=== PATIENT | male | born 1985 | race Caucasian/White ===

== ENCOUNTER 2016-08-30 05:04 | Emergency (ER) | payer OTHER ==
[~2016-08-30] VITALS: Ht 165.1 cm; Wt 86.2 kg
[2016-08-30 05:06] VITALS: BP 142/84
--- NOTE | 2016-08-30 05:06 | NUR ---
BIBA BLS TO ER BED 4
--- NOTE | 2016-08-30 05:15 | NUR ---
30/M BIBA C/O CHEST PAIN x 1 HOUR. PT STATES HE IS HAVING WITHDRAWAL SYMPTOMS, STATES LAST USE OF HEROIN 3 DAYS AGO. DENIES N/V/D; SKIN IS PINK/WARM/DRY; AAOX4 WITH EVEN AND STEADY GAIT; LUNGS CLEAR BL; HR EVEN AND REGULAR; PT DENIES ANY FEVER, SOB, OR COUGH AT THIS TIME; PATIENT STATES PAIN OF 4/10 AT THIS TIME; VSS; PATIENT POSITIONED FOR COMFORT; HOB ELEVATED; BEDRAILS UP X2; BED DOWN. ER MD MADE AWARE OF PT STATUS.
--- NOTE | 2016-08-30 05:21 | NUR ---
xray at bedside
--- NOTE | 2016-08-30 05:24 | NUR ---
pt given copy of rehab list. pt given cup to give urine sample and filled it with water.
--- NOTE | 2016-08-30 05:30 | NUR ---
Patient discharged with v/s stable. Written and verbal after care instructions given and explained. Patient alert, oriented and verbalized understanding of instructions. Ambulatory with steady gait. All questions addressed prior to discharge. ID band removed. Patient advised to follow up with PMD. Rx of bentyl given. Patient educated on indication of medication including possible reaction and side effects. Opportunity to ask questions provided and answered.
[2016-08-30 05:31] VITALS: BP 135/81
--- NOTE | 2016-08-30 05:32 | NUR ---
pt escorted to lobby, will call for ride home.
== END 2016-08-30 05:31 | disposition home or self-care (01) ==
LOC: MED 05:05
DX: R07.89 Other chest pain (principal); F11.10 Opioid abuse, uncomplicated

== ENCOUNTER 2020-04-02 16:32 | Emergency (ER) | payer OTHER ==
[~2020-04-02] VITALS: Ht 168.9 cm; Wt 99.3 kg
[~2020-04-02 16:32] MED LIST: AMOX-999 PO
[2020-04-02 16:39] VITALS: BP 144/78
--- NOTE | 2020-04-02 17:07 | NUR ---
PATIENT PRESENTS TO ED C/O FEET BURING PAIN & NUMBNESS, LEFT THIGH, BACK OF RIGHT THIGH PAIN X AFTER DISCHARGING FROM [facility] 03/23/20 FOR DEPRESSION, ASPIRATE PNEUMONIA, 5150, HEROIN OVERDOSE. DENIES SI AT THIS TIME. DENIES TRAUMA OR INJURY . CMS+ BILAT LOWER EXTREMITIES . DENIES N/V/D; SKIN IS PINK/WARM/DRY; AAOX4 WITH EVEN AND STEADY GAIT; LUNGS CLEAR BL; HR EVEN AND REGULAR; PT DENIES ANY FEVER, CP, SOB, OR COUGH AT THIS TIME; PATIENT STATES PAIN OF 0/10 AT THIS TIME; VSS; PATIENT POSITIONED FOR COMFORT; HOB ELEVATED; BEDRAILS UP X2; BED DOWN. ER MD MADE AWARE OF PT STATUS.
--- NOTE | 2020-04-02 17:31 | NUR ---
ULTRASOUND AT BEDSIDE
[2020-04-02 18:27] VITALS: BP 135/72
--- NOTE | 2020-04-02 18:28 | NUR ---
Patient discharged with v/s stable. Written and verbal after care instructions given and explained. Patient verbalized understanding. Ambulatory with steady gait. All questions addressed prior to discharge. Advised to follow up with PMD.
== END 2020-04-02 18:28 | disposition home or self-care (01) ==
LOC: MED 16:32 → MERGE 16:32 → MED 18:28
DX: R20.2 Paresthesia of skin (principal); M79.10 Myalgia, unspecified site; Z79.899 Other long term (current) drug therapy
CPT/HCPCS: 93970; 99284; Q0092

== ENCOUNTER 2021-12-02 19:24 | Emergency (ER) | payer OTHER ==
[~2021-12-02] VITALS: Ht 167.6 cm; Wt 90.7 kg
--- NOTE | 2021-12-02 19:26 | NUR ---
SAROJ ACCOMPANIED BY RONA CUTLER. TAKEN TO CHAIR C
[2021-12-02 19:27] VITALS: BP 159/109
--- NOTE | 2021-12-02 19:48 | NUR ---
PT EVALUATED BY DR. DIAZ
[2021-12-02] MEDS ORDERED: LORazepam 1 MG TAB PO ONE (19:50)
--- NOTE | 2021-12-02 20:00 | NUR ---
PT TAKEN TO XR VIA W/C
[2021-12-02] MEDS ORDERED: LIB25 PO ×2 (20:26→20:29)
--- NOTE | 2021-12-02 21:11 | NUR ---
LAB DRAWING BLOOD AT THIS TIME.
[2021-12-02 21:22] LABS: BASOPHILS % (AUTO) 0.4 % (0.0-2.0); EOSINOPHILS # (AUTO) 0.1 K/uL (0-0.4); EOSINOPHILS % (AUTO) 0.8 % (0.0-4.0); HEMATOCRIT 50.8 % (36-52); HEMOGLOBIN 17.6 g/dL (12.0-18.0); LYMPHOCYTES # (AUTO) 0.9 K/uL (2.0-11.5); LYMPHOCYTES % (AUTO) 10.1 % (20.5-51.1); MEAN CORPUSCULAR HEMOGLOBIN 31 pg (27-31); MEAN CORPUSCULAR HGB CONC 35 g/dL (33-37); MEAN CORPUSCULAR VOLUME 89.3 fL (80-94); MONOCYTES # (AUTO) 0.4 K/uL (0.8-1.0); MONOCYTES % (AUTO) 4.8 % (1.7-9.3); NEUTROPHILS # (AUTO) 7.6 K/uL (1.8-7.7); NEUTROPHILS % (AUTO) 83.9 % (42.2-75.2); PLATELET COUNT (AUTO) 224 K/uL (140-450); RED BLOOD CELL COUNT(AUTO) 5.69 MIL/uL (4.20-6.10); RED CELL DISTRIBUTION WIDTH 15.5 % (11.6-13.7)
[2021-12-02] MEDS ORDERED: chlordiazePOXIDE 25 MG CAP PO ONE (21:30)
[2021-12-02 21:39] LABS: ANION GAP 17.8 (8-16); CARBON DIOXIDE 22.9 mmol/L (21-32); CHLORIDE 101 mmol/L (98-107); CREATININE 1.1 mg/dL (0.6-1.3); GFR ARICAN-AMERICAN 98 mL/min (>90); GLUCOSE 107 mg/dL (74-106); POTASSIUM 4.7 mmol/L (3.5-5.1); SODIUM SERUM 137 mmol/L (136-145); UREA NITROGEN, BLOOD 10 mg/dL (7-18)
[2021-12-02 21:48] LABS: ALBUMIN 4.4 g/dL (3.4-5.0); ASPARTATE AMINOTRANSFERASE 19 U/L (15-37); TOTAL BILIRUBIN 0.6 mg/dL (0.0-1.0)
--- NOTE | 2021-12-02 22:02 | NUR ---
C/O 02/[address] PAIN. RE[address] PAIN MED[address] DIAZ NOTIFIED.
[2021-12-02] MEDS ORDERED: ASPIRIN 325 MG TAB PO ONE (22:05)
[2021-12-02] MEDS ORDERED: KETOROLAC 30 MG/ML VIAL IM ONE (22:05)
--- NOTE | 2021-12-02 22:05 | NUR ---
PT MOVED TO BED #10
--- NOTE | 2021-12-02 22:10 | NUR ---
COVID-19 swab collected and sent to lab.
--- NOTE | 2021-12-02 23:11 | NUR ---
Blood for labwork drawn from left arm per slate roofer. Patient tolerated well.
--- NOTE | 2021-12-02 23:42 | NUR ---
Provided food and drink as request.
[2021-12-03 00:16] VITALS: BP 126/88
--- NOTE | 2021-12-03 00:16 | NUR ---
Patient D/C to custody with [place] [employer].
== END 2021-12-03 00:16 ==
LOC: MED 19:24
DX: F10.139 Alcohol abuse with withdrawal, unspecified (principal); Z20.822 Contact with and (suspected) exposure to COVID-19; Y90.9 Presence of alcohol in blood, level not specified; R19.7 Diarrhea, unspecified; R07.9 Chest pain, unspecified; M54.50 Low back pain, unspecified
CPT/HCPCS: 36415; 71045; 80053; 84484; 85025; 87426; 93005; 96372; 99285; J1885

== ENCOUNTER 2022-03-21 00:45 | Emergency (ER) | payer OTHER ==
[~2022-03-21] VITALS: Ht 167.6 cm; Wt 81.6 kg
[~2022-03-21 00:45] MED LIST changes: +LIB25 PO
[2022-03-21 00:51] VITALS: BP 121/83
--- NOTE | 2022-03-21 00:52 | NUR ---
PT BIBA ALS ER BED 9
--- NOTE | 2022-03-21 01:00 | NUR ---
biba from parking lot found aloc, pinpoint pupils. medicas gave 4mg of narcan. pt is awake and alert. states he took beer, alcohol and vodka. denies hx, rx and allergies
--- NOTE | 2022-03-21 01:25 | NUR ---
DR ZAMORANO AT BEDSIDE FOR EXAM
--- NOTE | 2022-03-21 01:29 | NUR ---
AMBULATED TO BR
[2022-03-21] MEDS ORDERED: LORazepam 1 MG TAB PO ONE (02:55)
--- NOTE | 2022-03-21 03:00 | NUR ---
RESTING WIYH EYES CLOSED
[2022-03-21] MEDS ORDERED: ONDANSETRON 4 MG TAB ONE (05:55)
--- NOTE | 2022-03-21 05:56 | NUR ---
VERBAL ORDER FOR ZOFRAN 8MG SUBLINGUAL PER GERA ZAMORANO.
[2022-03-21] MEDS ORDERED: ONDANSETRON 4 MG ODT PO ONE (06:00)
[2022-03-21 06:25] VITALS: BP 109/72
== END 2022-03-21 06:25 | disposition home or self-care (01) ==
LOC: MED 00:45
DX: F10.129 Alcohol abuse with intoxication, unspecified (principal); T50.995A Adverse effect of other drugs, medicaments and biological substances, initial encounter; Z79.899 Other long term (current) drug therapy; Y92.89 Other specified places as the place of occurrence of the external cause
CPT/HCPCS: 99283; Q0162

== ENCOUNTER 2022-06-16 03:05 | Emergency (ER) | payer OTHER ==
[~2022-06-16] VITALS: Ht 167.6 cm; Wt 83.9 kg
[2022-06-16 03:06] VITALS: BP 112/76
--- NOTE | 2022-06-16 03:07 | NUR ---
Dr. Fletcher examining patient.
--- NOTE | 2022-06-16 03:08 | NUR ---
PT SAROJ ALS. TAKEN TO BED 5
[2022-06-16 03:25] VITALS: BP 104/69
[2022-06-16] MEDS ORDERED: NACL 0.9% 1,000 ML IV ONE (03:30)
--- NOTE | 2022-06-16 03:42 | NUR ---
36YR OLD MALE BIB EMS C/O OVERDOSE. PT STATES HE TOOK 2 PERCECTS , IS ETOH POS. FOUND ON BATHROOM FLOOR BY RELATIVE AND WAS GIVEN NARCAN. PT IS ALERT AND VERBAL. SMELL OF ETOH AND VOMIT. DENIES NAUSEA CP OR SOB. PT DESAT 88% ON RA 3L O2 PLACED VIA NC SPO2 93% . RESP EVEN AND UNLABORED. PT ON BEDSIDE MONTIOR. HOB ELEVATED SIDE RAILS UP X2. BED AT LOWEST POSITION. NKDA ANXIETY CHRONIC PAIN
--- NOTE | 2022-06-16 03:54 | NUR ---
PT REFUSING LABS AND URINE
--- NOTE | 2022-06-16 04:37 | NUR ---
PT SELF REMOVED IV
--- NOTE | 2022-06-16 04:40 | NUR ---
Patient does not wish to proceed with medical care recommended by Dr. Fletcher. Patient given information related to possible complications, up to and including , which could occur as a result of leaving hospital at this time. Patient verbalizes understanding of risks involved leaving against medical advice. Patient has signed AMA form.
[2022-06-16] MEDS ORDERED: NALO4SPR NS (04:46)
--- NOTE | 2022-07-03 00:11 | NUR ---
LATE ENTRY* NS DISCONTINUED AT 043
== END 2022-06-16 04:40 | disposition left against medical advice (07) ==
LOC: MED 03:05
DX: F10.129 Alcohol abuse with intoxication, unspecified (principal); T40.605A Adverse effect of unspecified narcotics, initial encounter; Z79.899 Other long term (current) drug therapy; Z98.890 Other specified postprocedural states; Y92.89 Other specified places as the place of occurrence of the external cause
CPT/HCPCS: 96360; 99283; J7030

== ENCOUNTER 2023-05-08 15:18 | Emergency (ER) | payer OTHER ==
[~2023-05-08] VITALS: Ht 167.6 cm; Wt 90.7 kg
[~2023-05-08 15:18] MED LIST changes: +NALO4SPR NS
[2023-05-08 15:37] VITALS: BP 132/78; PULSE 94; RESP 10; TEMP 97.4; O2SAT 98
[2023-05-08 15:41] VITALS: O2SAT 97
[2023-05-08] MEDS ORDERED: NALOXONE 0.4 MG/ML VIAL IVP ONE (15:50)
[2023-05-08 15:59] LABS: BASOPHILS % (AUTO) 0.9 % (0.0-2.0); EOSINOPHILS # (AUTO) 0.1 K/uL (0-0.4); EOSINOPHILS % (AUTO) 1.5 % (0.0-4.0); HEMATOCRIT 43.3 % (36-52); HEMOGLOBIN 15.1 g/dL (12.0-18.0); LYMPHOCYTES # (AUTO) 1.2 K/uL (2.0-11.5); LYMPHOCYTES % (AUTO) 29.7 % (20.5-51.1); MEAN CORPUSCULAR HEMOGLOBIN 33 pg (27-31); MEAN CORPUSCULAR HGB CONC 35 g/dL (33-37); MEAN CORPUSCULAR VOLUME 95.1 fL (80-94); MONOCYTES # (AUTO) 0.2 K/uL (0.8-1.0); MONOCYTES % (AUTO) 6.1 % (1.7-9.3); NEUTROPHILS # (AUTO) 2.5 K/uL (1.8-7.7); NEUTROPHILS % (AUTO) 61.8 % (42.2-75.2); PLATELET COUNT (AUTO) 199 K/uL (140-450); RED BLOOD CELL COUNT(AUTO) 4.55 MIL/uL (4.20-6.10); RED CELL DISTRIBUTION WIDTH 14.5 % (11.6-13.7); WHITE BLOOD COUNT (AUTO) 4.1 K/uL (4.8-10.8)
[2023-05-08 16:22] LABS: ALANINE AMINOTRANSFERASE 46 U/L (12-78); ALBUMIN 3.8 g/dL (3.4-5.0); ALCOHOL, BLOOD 75 mg/dL (<10); ALKALINE PHOSPHATASE 95 U/L (50-136); ANION GAP 14.6 (8-16); ASPARTATE AMINOTRANSFERASE 24 U/L (15-37); CALCIUM 8.1 mg/dL (8.5-10.1); CARBON DIOXIDE 24.5 mmol/L (21-32); CHLORIDE 104 mmol/L (98-107); CREATININE 0.9 mg/dL (0.6-1.3); GFR ARICAN-AMERICAN 123 mL/min (>90); GFR NON ARICAN-AMERICAN 101 mL/min (>90); GLUCOSE 105 mg/dL (74-106); POTASSIUM 3.1 mmol/L (3.5-5.1); SODIUM SERUM 140 mmol/L (136-145); TOTAL BILIRUBIN 1.4 mg/dL (0.0-1.0); TOTAL PROTEIN, SERUM 7.1 g/dL (6.4-8.2); UREA NITROGEN, BLOOD 13 mg/dL (7-18)
[2023-05-08 16:28] LABS: ACETAMINOPHEN < 0.5 ug/ml (10-30); SALICYLATE < 2.8 mg/dL (2.8-20.0)
[2023-05-08 18:00] VITALS: O2SAT 98
[2023-05-08 19:18] VITALS: BP 104/66; PULSE 82; RESP 15; TEMP 96.7; O2SAT 94
== END 2023-05-08 17:18 | disposition home or self-care (01) ==
LOC: MED 15:18
DX: F11.90 Opioid use, unspecified, uncomplicated (principal); F10.129 Alcohol abuse with intoxication, unspecified; Z79.899 Other long term (current) drug therapy; Y90.9 Presence of alcohol in blood, level not specified
CPT/HCPCS: 36415; 71045; 80053; 85025; 93005; 96374; 99285; G0480; G0482; J2310

== ENCOUNTER 2023-05-13 17:24 | Inpatient (IN) | payer OTHER ==
[~2023-05-13] VITALS: Ht 167.6 cm; Wt 89.8 kg
[2023-05-13 17:30] VITALS: BP 118/78; PULSE 109; RESP 28; O2SAT 90
[2023-05-13] MEDS ORDERED: IPRATROPIUM 0.02% 0.5 MG/2.5 ML NEBU INH ONE ×2 (17:35→18:45)
[2023-05-13] MEDS ORDERED: ALBUTEROL 0.083% 2.5 MG/3 ML NEBU INH ONE ×2 (17:35→18:45)
[2023-05-13 18:21] VITALS: PULSE 96; RESP 18; O2SAT 91
[2023-05-13 18:46] VITALS: PULSE 114; RESP 28; O2SAT 90
[2023-05-13 19:10] LABS: BASOPHILS % (AUTO) 0.5 % (0.0-2.0); EOSINOPHILS % (AUTO) 0.3 % (0.0-4.0); HEMATOCRIT 48.3 % (36-52); LYMPHOCYTES # (AUTO) 1.6 K/uL (2.0-11.5); LYMPHOCYTES % (AUTO) 18.8 % (20.5-51.1); MEAN CORPUSCULAR HEMOGLOBIN 33 pg (27-31); MEAN CORPUSCULAR HGB CONC 35 g/dL (33-37); MEAN CORPUSCULAR VOLUME 94.6 fL (80-94); MONOCYTES # (AUTO) 0.3 K/uL (0.8-1.0); MONOCYTES % (AUTO) 3.9 % (1.7-9.3); NEUTROPHILS # (AUTO) 6.4 K/uL (1.8-7.7); NEUTROPHILS % (AUTO) 76.5 % (42.2-75.2); PLATELET COUNT (AUTO) 241 K/uL (140-450); RED BLOOD CELL COUNT(AUTO) 5.11 MIL/uL (4.20-6.10); RED CELL DISTRIBUTION WIDTH 14.4 % (11.6-13.7); WHITE BLOOD COUNT (AUTO) 8.3 K/uL (4.8-10.8)
[2023-05-13] MEDS ORDERED: ACETAMINOPHEN 325 MG TAB PO PRN (20:00)
[2023-05-13] MEDS ORDERED: KCL 20 MEQ IN 100 mL PREMIX 200 ML IV PRN (20:00)
[2023-05-13] MEDS ORDERED: MORPHINE SULFATE 4 MG/ML SYR IVP PRN (20:00)
[2023-05-13] MEDS ORDERED: POTASSIUM CHLORIDE 10 MEQ TABER PO PRN (20:00)
[2023-05-13] MEDS ORDERED: MAGNESIUM OXIDE 400 MG TAB PO PRN (20:00)
[2023-05-13] MEDS ORDERED: ONDANSETRON 4 MG/2 ML VIAL IVP PRN (20:00)
[2023-05-13] MEDS ORDERED: HYDROcodone/APAP 5/325 MG 1 TAB TAB PO PRN (20:00)
[2023-05-13] MEDS ORDERED: MAG SULF 2000 MG/WATER PREMIX 50 ML IV PRN (20:00)
[2023-05-13 20:03] LABS: ALBUMIN 4.1 g/dL (3.4-5.0); ANION GAP 18.8 (8-16); CALCIUM 8.7 mg/dL (8.5-10.1); CARBON DIOXIDE 21.8 mmol/L (21-32); CREATININE 0.9 mg/dL (0.6-1.3); POTASSIUM 3.6 mmol/L (3.5-5.1); TOTAL BILIRUBIN 1.2 mg/dL (0.0-1.0); TOTAL PROTEIN, SERUM 8.1 g/dL (6.4-8.2)
[2023-05-13 21:13] VITALS: PULSE 118; RESP 20; O2SAT 100
[2023-05-13] MEDS ORDERED: LORazepam 2 MG/ML VIAL IVP PRN (22:25)
[2023-05-13] MEDS ORDERED: PIPERACILLIN/TAZOBACTAM 3.375 GM VIAL IV ONE (23:32)
[2023-05-14] VITALS: BP 147/93; PULSE 101; PULSE 93; RESP 18; TEMP 99.5; O2SAT 100
[2023-05-14] MEDS: PIPERACILLIN/TAZOBACTAM 3.375 GM in DEXTROSE 5% 50 ML IV SCH ×2 (00:32→05:55)
[2023-05-14 04:00] VITALS: BP 124/80; PULSE 103; PULSE 84; RESP 19; TEMP 98.8; O2SAT 100
[2023-05-14] MEDS ORDERED: PIPERACILLIN/TAZOBACTAM 3.375 GM VIAL IV ONE (05:25)
[2023-05-14 06:51] LABS: BASOPHILS % (AUTO) 0.2 % (0.0-2.0); EOSINOPHILS % (AUTO) 0.2 % (0.0-4.0); HEMATOCRIT 44.5 % (36-52); HEMOGLOBIN 15.6 g/dL (12.0-18.0); LYMPHOCYTES # (AUTO) 2.2 K/uL (2.0-11.5); LYMPHOCYTES % (AUTO) 13.8 % (20.5-51.1); MEAN CORPUSCULAR HEMOGLOBIN 33 pg (27-31); MEAN CORPUSCULAR HGB CONC 35 g/dL (33-37); MEAN CORPUSCULAR VOLUME 95.1 fL (80-94); MONOCYTES # (AUTO) 0.8 K/uL (0.8-1.0); MONOCYTES % (AUTO) 4.9 % (1.7-9.3); NEUTROPHILS # (AUTO) 13.1 K/uL (1.8-7.7); NEUTROPHILS % (AUTO) 80.9 % (42.2-75.2); PLATELET COUNT (AUTO) 199 K/uL (140-450); RED BLOOD CELL COUNT(AUTO) 4.68 MIL/uL (4.20-6.10); RED CELL DISTRIBUTION WIDTH 14.2 % (11.6-13.7); WHITE BLOOD COUNT (AUTO) 16.2 K/uL (4.8-10.8)
[2023-05-14 07:47] LABS: ALBUMIN 3.6 g/dL (3.4-5.0); ANION GAP 16.9 (8-16); CALCIUM 8.3 mg/dL (8.5-10.1); CARBON DIOXIDE 23.5 mmol/L (21-32); CREATININE 1.2 mg/dL (0.6-1.3); POTASSIUM 3.4 mmol/L (3.5-5.1); TOTAL BILIRUBIN 2.6 mg/dL (0.0-1.0); TOTAL PROTEIN, SERUM 7.4 g/dL (6.4-8.2)
[2023-05-14] MEDS ORDERED: THIAMINE 100 MG TAB PO SCH (09:20)
[2023-05-14] MEDS ORDERED: FOLIC ACID 1 MG TAB PO SCH (09:20)
== END 2023-05-14 13:31 | disposition left against medical advice (07) | DRG 812 ==
LOC: MED 17:24 → MTU 20:00
PROVIDERS: ADMIT Student in an Organized Health Care Education/Training Program; ATTEND Student in an Organized Health Care Education/Training Program
DX: T40.411A Poisoning by fentanyl or fentanyl analogs, accidental (unintentional), initial encounter (principal); J96.01 Acute respiratory failure with hypoxia; J69.0 Pneumonitis due to inhalation of food and vomit; F15.10 Other stimulant abuse, uncomplicated; Z53.29 Procedure and treatment not carried out because of patient's decision for other reasons; F10.129 Alcohol abuse with intoxication, unspecified; Y90.9 Presence of alcohol in blood, level not specified; D72.829 Elevated white blood cell count, unspecified; Y92.89 Other specified places as the place of occurrence of the external cause
CPT/HCPCS: 36415; 71045; 80053; 83880; 85025; 87081; 93005; 96374; 99291; J0696; J1644; J2060; J2405; J2543; J7060; J7613; J7644; Q0092

== ENCOUNTER 2023-08-20 11:22 | Emergency (ER) | payer OTHER ==
[~2023-08-20] VITALS: Ht 165.1 cm; Wt 72.6 kg
[~2023-08-20 11:22] MED LIST changes: +CHLO-836 PO; -LIB25 PO
[2023-08-20 11:26] VITALS: BP 121/73; PULSE 86; RESP 16; TEMP 99.1; O2SAT 98
[2023-08-20] MEDS ORDERED: PRED20TA5 PO (12:51)
[2023-08-20] MEDS ORDERED: ROB PO (12:51)
[2023-08-20] MEDS ORDERED: ALBU0.0912 INH (12:51)
== END 2023-08-20 13:04 | disposition home or self-care (01) ==
LOC: MED 11:22
DX: J06.9 Acute upper respiratory infection, unspecified (principal); F17.210 Nicotine dependence, cigarettes, uncomplicated; Z79.899 Other long term (current) drug therapy
CPT/HCPCS: 71045; 99283

== ENCOUNTER 2023-10-11 15:35 | Emergency (ER) | payer OTHER ==
[~2023-10-11] VITALS: Ht 167.6 cm; Wt 90.7 kg
[~2023-10-11 15:35] MED LIST changes: +ALBU0.0912 INH; +PRED20TA5 PO; +ROB PO
[2023-10-11 15:38] VITALS: BP 109/73; PULSE 68; RESP 18; TEMP 97.8; O2SAT 99
[2023-10-11] MEDS ORDERED: CEPH-588 PO (16:18)
== END 2023-10-11 16:30 | disposition home or self-care (01) ==
LOC: MED 15:35
DX: L03.113 Cellulitis of right upper limb (principal); Z79.899 Other long term (current) drug therapy
CPT/HCPCS: 99284

== ENCOUNTER 2023-11-18 14:08 | Emergency (ER) | payer OTHER ==
[~2023-11-18] VITALS: Ht 167.6 cm; Wt 88.5 kg
[~2023-11-18 14:08] MED LIST changes: +CEPH-588 PO; +CHLO-757 PO; -CHLO-836 PO
[2023-11-18 14:15] VITALS: BP 124/79; PULSE 89; RESP 16; TEMP 97.5; O2SAT 96
[2023-11-18 15:01] VITALS: BP 124/79; PULSE 89; RESP 16; TEMP 97.5; O2SAT 96
== END 2023-11-18 15:11 | disposition left against medical advice (07) ==
LOC: MED 14:08
DX: T40.2X1A Poisoning by other opioids, accidental (unintentional), initial encounter (principal); F19.10 Other psychoactive substance abuse, uncomplicated; I10 Essential (primary) hypertension; Z79.1 Long term (current) use of non-steroidal anti-inflammatories (NSAID); Z79.2 Long term (current) use of antibiotics; Z79.899 Other long term (current) drug therapy; Y92.89 Other specified places as the place of occurrence of the external cause
CPT/HCPCS: 93005; 99283

== ENCOUNTER 2023-11-29 16:41 | Emergency (ER) | payer OTHER ==
[~2023-11-29] VITALS: Ht 167.6 cm; Wt 88.5 kg
[2023-11-29 17:21] VITALS: BP 127/82; PULSE 72; RESP 24; TEMP 98.4; O2SAT 99
[2023-11-29] MEDS ORDERED: BACI-418 TP (17:55)
[2023-11-29] MEDS ORDERED: SULF-59 PO (17:55)
[2023-11-29] MEDS ORDERED: IBUP-1842 PO (17:55)
== END 2023-11-29 18:00 | disposition home or self-care (01) ==
LOC: MED 16:41
DX: L02.414 Cutaneous abscess of left upper limb (principal); L02.413 Cutaneous abscess of right upper limb; R50.9 Fever, unspecified; I10 Essential (primary) hypertension; Z79.899 Other long term (current) drug therapy
CPT/HCPCS: 99283

== ENCOUNTER 2023-12-28 14:56 | Emergency (ER) | payer OTHER ==
[~2023-12-28] VITALS: Ht 167.6 cm; Wt 85.4 kg
[~2023-12-28 14:56] MED LIST changes: +BACI-418 TP; +IBUP-1842 PO; +SULF-59 PO
[2023-12-28 14:59] VITALS: BP 117/80; PULSE 78; RESP 17; TEMP 97.8; O2SAT 100
[2023-12-28 15:10] VITALS: O2SAT 100
[2023-12-28] MEDS ORDERED: BACITRACIN OINT 500 UNITS/GM PKT TP ONE (15:28)
[2023-12-28] MEDS ORDERED: BACI-418 TP (15:54)
[2023-12-28] MEDS ORDERED: KETO10TA2 PO (15:54)
[2023-12-28] MEDS: NON ADHERENT DRESSING TP SCH (15:56)
[2023-12-28] MEDS: KETOROLAC 30 MG/ML VIAL IM ONE (16:11)
== END 2023-12-28 16:17 | disposition home or self-care (01) ==
LOC: MED 14:56
DX: T23.109A Burn of first degree of unspecified hand, unspecified site, initial encounter (principal); T24.101A Burn of first degree of unspecified site of right lower limb, except ankle and foot, initial encounter; T31.0 Burns involving less than 10% of body surface; T79.9XXA Unspecified early complication of trauma, initial encounter; X08.8XXA Exposure to other specified smoke, fire and flames, initial encounter; Y93.89 Activity, other specified; Y92.89 Other specified places as the place of occurrence of the external cause; Y99.8 Other external cause status
CPT/HCPCS: 16020; 90471; 90715; 96372; 99284; J1885

== ENCOUNTER 2023-12-30 10:25 | Emergency (ER) | payer OTHER ==
[~2023-12-30] VITALS: Ht 167.6 cm; Wt 85.3 kg
[~2023-12-30 10:25] MED LIST changes: +KETO10TA2 PO
[2023-12-30 10:32] VITALS: BP 128/79; PULSE 87; RESP 16; TEMP 98; O2SAT 100
[2023-12-30] MEDS ORDERED: BACITRACIN OINT 500 UNITS/GM PKT TP ONE (10:46)
[2023-12-30] MEDS: BACITRACIN OINT 500 UNITS/GM PKT TP ONE (10:49)
[2023-12-30 10:51] VITALS: O2SAT 100
== END 2023-12-30 11:17 | disposition home or self-care (01) ==
LOC: MED 10:25
DX: Z48.00 Encounter for change or removal of nonsurgical wound dressing (principal); I10 Essential (primary) hypertension; Z79.1 Long term (current) use of non-steroidal anti-inflammatories (NSAID); Z79.2 Long term (current) use of antibiotics; Z79.899 Other long term (current) drug therapy
CPT/HCPCS: 99282

== ENCOUNTER 2024-01-31 03:40 | Emergency (ER) | payer OTHER ==
[~2024-01-31] VITALS: Ht 167.6 cm; Wt 88.5 kg
[2024-01-31 03:45] VITALS: BP 161/100; PULSE 97; RESP 20; TEMP 98.2; O2SAT 97
[2024-01-31] MEDS ORDERED: BACITRACIN OINT 500 UNITS/GM PKT TP ONE (04:58)
[2024-01-31] MEDS: BACITRACIN ZINC/POLYMYXIN B OINT 30 GM TUBE TP ONE (05:01)
[2024-01-31] MEDS ORDERED: KEP500 PO (05:53)
[2024-01-31 06:00] VITALS: BP 161/100; PULSE 97; RESP 20; TEMP 98.2; O2SAT 97
[2024-01-31] MEDS ORDERED: NAPR-337 PO (06:04)
[2024-01-31] MEDS ORDERED: CHLO-757 PO (06:04)
== END 2024-01-31 06:00 | disposition home or self-care (01) ==
LOC: MED 03:40
DX: S23.3XXA Sprain of ligaments of thoracic spine, initial encounter (principal); F10.129 Alcohol abuse with intoxication, unspecified; T24.201A Burn of second degree of unspecified site of right lower limb, except ankle and foot, initial encounter; T31.0 Burns involving less than 10% of body surface; I10 Essential (primary) hypertension; Z79.899 Other long term (current) drug therapy; Z79.1 Long term (current) use of non-steroidal anti-inflammatories (NSAID); Z79.2 Long term (current) use of antibiotics
CPT/HCPCS: 16020; 72072; 99283